=== PATIENT | male | born 1965 | race Caucasian/White ===

== ENCOUNTER → 2017-01-25 | Outpatient (CLI) | payer BC ==
--- NOTE | 2017-01-25 09:25 | XR ---
EXAMINATION TYPE: XR foot limited LT DATE OF EXAM: 01/25/2017 CLINICAL HISTORY: Chronic left foot pain at the plantar surface and metatarsophalangeal joints. TECHNIQUE: Frontal, lateral, and oblique images of the left foot are obtained. COMPARISON: None FINDINGS: There is no acute fracture/dislocation evident in the left foot. There is mild joint space narrowing of the first metatarsophalangeal joint on the left with subchondral sclerosis, similar fin ding is seen at the first tarsometatarsal joint on the left and to a lesser degree at the distal inte rphalangeal joint of the first digit with a small marginal osteophyte. Joint spaces of the remaining foot are preserved. The overlying soft tissue appears unremarkable. IMPRESSION: 1. There is no acute fracture or dislocation in the left foot. 2. Mild osteoarthrosis of the left first digit.
--- NOTE | 2017-01-25 14:00 | NM ---
EXAMINATION TYPE: NM bone 3 phase DATE OF EXAM: 01/25/2017 COMPARISON: Radiographs of the left foot dated 01/25/2017 HISTORY: Left foot pain for one year consistently at the plantar aspect of the calcaneus. No history of trauma. Triple phase bone scintigraphy was performed following the injection of25.3 mCi Tc 99m MDP. Immediat e images and 5.5 hours post injection images acquired. FINDINGS: Symmetric blood flow is noted bilaterally. Symmetric radiotracer uptake is seen within the tarsometat arsal joints. No asymmetric uptake is seen on delayed imaging. There is no significant abnormal accum ulation of radiotracer. IMPRESSION: Unremarkable three-phase bone scan. No scintigraphic evidence of significant arthropathy, fracture, o r other finding.
== END | disposition home or self-care (01) ==
LOC: RADNMMAIN 07:24
PROVIDERS: ATTEND Podiatrist Foot & Ankle Surgery
DX: M19.072 Primary osteoarthritis, left ankle and foot (principal)
CPT/HCPCS: 73620; 78315; A9503